=== PATIENT | female | born 1950 | race Two or more races ===

== ENCOUNTER 2024-10-19 13:36 | Inpatient (IN) | payer OTHER ==
[2024-10-19] MEDS ORDERED: VANCOMYCIN 1,000 MG in DEXTROSE 5%-WATER - 250 ML IVPB ONE (13:58)
[2024-10-19] MEDS: ACETAMINOPHEN 1000 MG/100 ML BAG IVPB ONE (14:33)
[2024-10-19] MEDS ORDERED: PIPERACILLIN/TAZOB 4.5 GM 4.5 GM/100 ML BAG IVPB ONE (14:40)
[2024-10-19 14:43] LABS: ABSOLUTE IMMATURE GRANULOCYTES 0.04 x10^3/uL (0.0-0.031); BASOPHILS # 0.06 x10^3/uL (0.01-0.08); EOSINOPHIL % 0.6 % (0.7-5.8); EOSINOPHILS # 0.07 x10^3/uL (0.04-0.36); HEMATOCRIT 37.4 % (34.1-44.9); HEMOGLOBIN 11.9 g/dL (11.2-15.7); MCHC 31.8 g/dl (32.2-35.5); MEAN CELL VOLUME 98.7 fl (79.4-94.8); MEAN PLT VOLUME 12.7 fl (9.4-12.3); MONOCYTE # 0.88 x10^3/uL (0.24-0.86); MONOCYTE % 7.1 % (4.7-12.5); PLATELET COUNT 294 x10^3/uL (182-369); RDW 13.5 % (12.4-16.6)
[2024-10-19 14:46] LABS: VENOUS BASE EXCESS 3.7 mmol/L (-2-2); VENOUS PCO2 41.9 mmHg (38-52); VENOUS PH 7.445 (7.310-7.410)
[2024-10-19] MEDS: PIPERACILLIN/TAZOB 4.5 GM 4.5 GM in DEXTROSE 5%-WATER 100 ML IVPB ONE (14:49)
[2024-10-19] MEDS: LACTATED RINGERS SOLUTION 1000 ML INFUS.BAG IV ONE (14:50)
[2024-10-19 14:56] LABS: INR 1.08 (0.83-1.09); PROTHROMBIN TIME (PATIENT) 11.8 SEC (9.7-13.0)
[2024-10-19 14:59] LABS: ACTIVATED PTT 26.9 SECONDS (25.2-36.5)
[2024-10-19 15:02] LABS: POTASSIUM 4.4 mmol/L (3.5-5.1)
[2024-10-19 15:04] LABS: ALBUMIN 3.2 g/dl (3.4-5.0); CALCIUM 9.6 mg/dL (8.5-10.1)
[2024-10-19 15:05] LABS: BLOOD UREA NITROGEN 67.8 mg/dL (7-18)
[2024-10-19 15:08] LABS: CREATININE 1.2 mg/dL (0.55-1.3)
[2024-10-19 15:09] LABS: BILIRUBIN,TOTAL 0.3 mg/dL (0.2-1); TOT PROT 7.6 g/dl (6.4-8.2)
[2024-10-19 15:17] LABS: LACTIC ACID 2.6 mmol/L (0.4-2.0)
[2024-10-19] MEDS ORDERED: VANCOMYCIN 1 GM PREMIX (F) 1 GM/200 ML BAG ONE (15:31)
[2024-10-19] MEDS: VANCOMYCIN 1 GM PREMIX (F) 1 GM/200 ML BAG IVPB ONE (15:41)
[2024-10-19] MEDS: SODIUM CHLORIDE 0.9% 500 ML INFUS.BAG IV ONE (15:47)
[2024-10-19 18:03] LABS: EPI CELLS 5 /uL (0-25.1); HYALINE CASTS 6 /uL (0-3.1); URINE APPEARANCE TURBID; URINE BACTERIA >9,000 /uL (0-1359); URINE BILIRUBIN NEGATIVE (NEGATIVE); URINE COLOR YELLOW; URINE GLUCOSE (UA) 2+ (NEGATIVE); URINE KETONE NEGATIVE (NEGATIVE); URINE LEUK ESTERASE 2+ (NEGATIVE); URINE NITRITE NEGATIVE (NEGATIVE); URINE PROTEIN 1+ (NEGATIVE); URINE RBC 4 /uL (0-23.9); URINE UROBILINOGEN 0.2 mg/dL (0.2-1.0); URINE WBC 299 /uL (0-25.8)
[2024-10-19 18:38] LABS: LACTIC ACID 2.1 mmol/L (0.4-2.0)
[2024-10-19] MEDS ORDERED: INSULIN REGULAR HUMAN 100 UNITS/ML *VIAL ONE (19:50)
[2024-10-19] MEDS: INSULIN REGULAR HUMAN 100 UNITS/ML *VIAL IVPUSH ONE (19:54)
[2024-10-19] MEDS ORDERED: ACETAMINOPHEN 325 MG TABLET (FP) PO PRN (21:48)
[2024-10-19] MEDS ORDERED: ALBUTEROL SO4 0.083% IH SOL 2.5 MG/3 ML VIAL.NEB. NEB PRN (22:07)
[2024-10-19] MEDS: SODIUM CHLORIDE 1,000 ML IV SCH (22:12)
[2024-10-20 00:19] VITALS: BMI 18.1
[2024-10-20] MEDS: INSULIN ASPART SLIDING SCALE (NOVOLOG) 1 VIAL SQ SCH (06:15)
[2024-10-20 07:04] LABS: HEMOGLOBIN 10.5 g/dL (11.2-15.7)
[2024-10-20 07:05] LABS: HEMATOCRIT 34.1 % (34.1-44.9); MCHC 30.8 g/dl (32.2-35.5); MEAN CELL VOLUME 100.3 fl (79.4-94.8); MEAN PLT VOLUME 13.3 fl (9.4-12.3); PLATELET COUNT 231 x10^3/uL (182-369); RDW 13.4 % (12.4-16.6)
[2024-10-20 07:27] LABS: POTASSIUM 4.3 mmol/L (3.5-5.1)
[2024-10-20 07:34] LABS: ALBUMIN 2.8 g/dl (3.4-5.0); BLOOD UREA NITROGEN 53.2 mg/dL (7-18); CALCIUM 8.9 mg/dL (8.5-10.1)
[2024-10-20 07:38] LABS: BILIRUBIN,TOTAL 0.4 mg/dL (0.2-1); CREATININE 0.8 mg/dL (0.55-1.3); TOT PROT 6.4 g/dl (6.4-8.2)
[2024-10-20] MEDS: CEFTRIAXONE 1 GM in DEXTROSE 5%-WATER - 50 ML IVPB SCH (09:31)
[2024-10-20] MEDS: PANTOPRAZOLE 40 MG TABLET PO SCH (09:35)
[2024-10-20] MEDS: amLODIPine BESYLATE 5 MG TABLET (FP) PO SCH (09:35)
[2024-10-20] MEDS ORDERED: FAMOTIDINE 20 MG/2.5 ML ORAL LIQUID PO SCH (11:31)
[2024-10-20] MEDS ORDERED: ACETAMINOPHEN 650 MG/20.3 ML ORAL SOLUTION (CUPS) GT PRN (11:37)
[2024-10-20] MEDS: FLUCONAZOLE 40 MG/ML SUSPENSION GT SCH (12:46)
[2024-10-20] MEDS: SEVELAMER CARBONATE 0.8 GM POWDER PACKET PO SCH (16:38)
[2024-10-20] MEDS ORDERED: ALBUTEROL SO4 0.083% IH SOL 2.5 MG/3 ML VIAL.NEB. NEB PRN ×2 (18:01→18:37)
[2024-10-20] MEDS ORDERED: IPRATROPIUM BR 0.02% 0.5 MG/2.5 ML VIAL.NEB. NEB PRN (18:37)
[2024-10-20] MEDS: ENOXAPARIN NA (PORCINE) 40 MG/0.4 ML DISP.SYRIN SQ SCH (20:38)
[2024-10-20 20:46] VITALS: RESP 18
[2024-10-20] MEDS: SODIUM CHLORIDE 1,000 ML IV SCH (21:02)
[2024-10-20] MEDS: ATORVASTATIN CA 40 MG TABLET (FP) PEG SCH (21:03)
[2024-10-20] MEDS: INSULIN GLARGINE (LANTUS) 100 UNITS/ML UNITS SQ SCH (21:03)
[2024-10-20] MEDS: MELATONIN 1 MG TABLET GT SCH (21:03)
[2024-10-20] MEDS: ARTIFICIAL TEARS OPHTHALMIC DROPS OU SCH (21:04)
[2024-10-20] MEDS ORDERED: INSULIN GLARGINE (LANTUS) 100 UNITS/ML UNITS SQ SCH (22:00)
[2024-10-21] MEDS: INSULIN ASPART SLIDING SCALE (NOVOLOG) 1 VIAL SQ SCH (06:16)
[2024-10-21] MEDS: SEVELAMER CARBONATE 0.8 GM POWDER PACKET PEG SCH (08:26)
[2024-10-21] MEDS ORDERED: amLODIPine BESYLATE 5 MG TABLET (FP) GT SCH (10:00)
[2024-10-21 10:44] LABS: ABSOLUTE IMMATURE GRANULOCYTES 0.03 x10^3/uL (0.0-0.031); BASOPHILS # 0.03 x10^3/uL (0.01-0.08); EOSINOPHIL % 5.4 % (0.7-5.8); EOSINOPHILS # 0.43 x10^3/uL (0.04-0.36); HEMATOCRIT 27.6 % (34.1-44.9); HEMOGLOBIN 8.7 g/dL (11.2-15.7); MCHC 31.5 g/dl (32.2-35.5); MEAN CELL VOLUME 98.9 fl (79.4-94.8); MEAN PLT VOLUME 13.4 fl (9.4-12.3); MONOCYTE # 0.57 x10^3/uL (0.24-0.86); MONOCYTE % 7.2 % (4.7-12.5); PLATELET COUNT 212 x10^3/uL (182-369); RDW 13.4 % (12.4-16.6)
[2024-10-21 11:14] LABS: POTASSIUM 3.6 mmol/L (3.5-5.1)
[2024-10-21 11:17] VITALS: BP 138/79; PULSE 80; TEMP 98.1
[2024-10-21] MEDS: PANTOPRAZOLE SODIUM 40 MG VIAL IVPUSH SCH (11:18)
[2024-10-21] MEDS: ASPIRIN 81 MG CHEWABLE TABLETS PEG SCH (11:19)
[2024-10-21] MEDS: CEFTRIAXONE 1 GM in DEXTROSE 5%-WATER - 50 ML IVPB SCH (11:19)
[2024-10-21] MEDS: POLYETHYLENE GLYCOL (HEALTHYLAX) 3350 17 GM PACKET PEG SCH (11:19)
[2024-10-21] MEDS: amLODIPine BESYLATE 5 MG TABLET (FP) PEG SCH (11:20)
[2024-10-21 11:36] LABS: CALCIUM 8.7 mg/dL (8.5-10.1)
[2024-10-21 11:37] LABS: ALBUMIN 2.5 g/dl (3.4-5.0); MAGNESIUM 2.1 mg/dL (1.8-2.4)
[2024-10-21 11:40] LABS: CREATININE 0.6 mg/dL (0.55-1.3); PHOSPHOROUS 2.6 mg/dL (2.5-4.9)
[2024-10-21 11:41] LABS: BILIRUBIN,TOTAL 0.2 mg/dL (0.2-1)
[2024-10-21 12:02] LABS: TOT PROT 5.7 g/dl (6.4-8.2)
== END 2024-10-21 15:08 | DRG 720 ==
LOC: JER 13:36 → JERBED 18:12 → J4W 23:40 → J5S 10-20 17:42
PROVIDERS: ADMIT Hospitalist
DX: A41.9 Sepsis, unspecified organism (principal); I10 Essential (primary) hypertension; E78.5 Hyperlipidemia, unspecified; F03.90 Unspecified dementia, unspecified severity, without behavioral disturbance, psychotic disturbance, mood disturbance, and anxiety; G93.41 Metabolic encephalopathy; N39.0 Urinary tract infection, site not specified; E87.20 Acidosis, unspecified; E11.65 Type 2 diabetes mellitus with hyperglycemia; B37.0 Candidal stomatitis; E86.1 Hypovolemia; R53.2 Functional quadriplegia
CPT/HCPCS: 0241U-QW; 36415; 70450-TC; 71045-TC-FY; 80053; 81003; 82010; 82803; 82962; 83036; 83605; 83735; 84100; 84484; 85025; 85027; 85610; 85730; 86850; 86900; 86901; 87040; 87086; 93005; 93010; 99285-25